=== PATIENT | male | born 1955 | race Caucasian/White ===

== ENCOUNTER → 2021-03-02 07:47 | Outpatient (CLI) | payer OTHER, SELFPAY ==
--- NOTE | ~2021-03-02 | US_ITS ---
EXAMINATION: US aorta DATE: 03/02/2021 08:14 INDICATION: Abdominal aortic aneurysm screening, history of hypertension and prior tobacco use TECHNIQUE: Grayscale, color Doppler, and pulsed Doppler images of the aorta and common iliac arteries were obtained. COMPARISON: None. FINDINGS: Maximum vascular dimensions are as follows: Proximal aorta: 2.1 cm Mid aorta: 2.1 cm Distal aorta: 2.1 cm Right common iliac artery: 1.3 cm Left common iliac artery: 1.2 cm There is no evidence of abdominal aortic aneurysm. IMPRESSION: 1. No sonographic evidence of abdominal aortic aneurysm. Reviewed, dictated and finalized at location A. UATE STUDENT INSTRUCTOR
== END ==
PROVIDERS: PCP Family Medicine; Visit Provider Family Medicine
DX: Z82.49 Family history of ischemic heart disease and other diseases of the circulatory system (principal); Z87.891 Personal history of nicotine dependence
CPT/HCPCS: 76775

== ENCOUNTER 2023-03-04 04:57 | Inpatient (IN) | payer MEDICARE, OTHER, SELFPAY ==
[2023-03-04] VITALS (26 sets, daily range): BP systolic 128–188; BP diastolic 72–106; PULSE 49–73; RESP 14–22; TEMP 36.1–37.2; O2SAT 96–100; BMI 26.4
--- NOTE | ~2023-03-04 | XR_ITS ---
Left Shoulder Technique: AP and scapular Y views were obtained. Clinical History: Pain Findings: No fracture or dislocation is seen. Osseous alignment is anatomic. The glenohumeral and acr omioclavicular joint spaces are preserved. Soft tissues are unremarkable. Impression: Unremarkable left shoulder radiographs. Reviewed, dictated and finalized at [facility]. STANT BOYS TRACK COACH Impression: Unremarkable left shoulder radiographs.
--- NOTE | 2023-03-04 05:03 | ECG_ITS ---
Measurements Intervals [place] Rate: 58 P: 26 [place]: 198 QRS: 18 QRSD: 102 T: 61 QT: 399 QTc: 394 Interpretive Statements SINUS BRADYCARDIA INCOMPLETE RIGHT BUNDLE BRANCH BLOCK [90+ ms QRS DURATION, TERMINAL R IN V1/V2, 40+ ms S IN I/aVL/V4/V5/V6] NONSPECIFIC ST ABNORMALITY ABNORMAL ECG NO PREVIOUS ECG AVAILABLE FOR COMPARISON Electronically Signed On 03-04-2023 16:58:52 FIRE INVESTIGATION MANAGER by Parmjit Young M.D.
--- NOTE | 2023-03-04 05:07 | PC.NURSE ---
Patient mentioned in triage area that he has a family hx of heart attacks
[2023-03-04 05:15] LABS: Basophils Absolute Auto 0.1 K/mm3 (0.0-0.1); Basophils Percent Auto 0.8 % (0.2-1.2); Eosinophils Absolute Auto 0.3 K/mm3 (0-0.3); Eosinophils Percent Auto 4.3 % (0-4.4); Hematocrit 46.8 % (42.0-52.0); Hemoglobin 15.5 g/dL (14.0-18.0); Immature Granulocyte Absolute 0.03 K/mm3 (0.00-0.031); Immature Granulocyte Percent A 0.4 % (0-0.5); Lymphocytes Absolute Auto 2.49 K/mm3 (0.9-3.2); Lymphocytes Percent Auto 33.6 % (18.3-44.2); Mean Corpuscular HGB Conc 33.1 g/dl (32-36); Mean Corpuscular Hemoglobin 29.2 pg (26-34); Mean Corpuscular Volume 88.3 fl (80-100); Mean Platelet Volume 10.1 fl (7.4-10.4); Monocytes Absolute Auto 0.7 K/mm3 (0.1-0.6); Neutrophils Absolute Auto 3.8 K/mm3 (1.3-6.7); Neutrophils Percent Auto 50.9 % (45.5-73.1); Platelet Count Result 247 k/mm3 (150-375); Red Cell Distribution Width 13.7 % (11.5-14.5); White Blood Count 7.4 K/mm3 (4.5-10.0)
[2023-03-04 05:25] LABS: Alanine Aminotransferase 30 U/L (6-50); Albumin Level 4.4 g/dL (3.5-5.1); Alkaline Phosphatase 75 U/L (38-126); Anion Gap 9 mmol/L (8-16); Aspartate Amino Transferase 27 U/L (17-59); Blood Urea Nitrogen 13 mg/dL (9-20); Calcium 9.6 mg/dL (8.4-10.2); Carbon Dioxide 31 mmol/L (22-30); Chloride 101 mmol/L (98-107); Estimated CRCL calculation 72 ml/min; Estimated Glomerular Filt Rate > 60; Glucose 114 mg/dL (65-110); Lipase 69 U/L (23-300); Potassium 3.6 mmol/L (3.4-5.0); Sodium 141 mmol/L (137-145)
[2023-03-04 05:27] LABS: INR 0.9; Partial Thromboplastin Time 27.7 SECONDS (22.3-36.8); Prothrombin Time 12.8 Seconds (11.1-14.7)
[2023-03-04 05:41] LABS: Troponin I 0.035 ng/mL (0.000-0.034)
--- NOTE | 2023-03-04 06:02 | ED.CHESTPAIN ---
HPI - Chest Pain General Chief Complaint: Chest Pain Stated Complaint: left shoulder pain Time Seen by Provider: 03/04/23 05:22 History of Present Illness [facility] narrative: patient presents the emergency department from home with left shoulder pain. Pain located deep in his shoulder . Patient is concerned because his brother and nephew have both from cardiac related issues. He denies chest pain shortness of breath. However the shoulder pain is not aggravated by movement. He states it actually feels somewhat better when he moves it. He did not injure it. Was caring his granddaughter yesterday but with the right arm. Patient has had stress tests in the past are unremarkable Related Data Allergies Allergy/AdvReac Type Severity Reaction Status Date / Time No Known Allergies Allergy Verified 02/28/23 09:00 Review of Systems Review of Systems: negative except for what is documented in the [facility] Past Medical History Medical History Hypertension Normal colonoscopy 2014 Surgical History Surgical History History of colectomy History of hernia surgery Family History Family History Mother Hypertension Family history of coronary artery disease Father Acute myocardial infarction Patient's father is in good health Family history of malignant neoplasm of brain Sibling Acute myocardial infarction Family history of coronary artery disease, Onset Age: 47 Family history of malignant neoplasm of breast in first degree relative, Onset Age: 56 Family history of malignant neoplasm of thyroid, Onset Age: 45 Social History Social History Smoking packs per day: 0.5 Smoking cigarettes per day: 10.0 Years smoked: 8 Smoking pack-years: 4.00 Smoking status: Former smoker Second hand tobacco smoke exposure: No Smoking end date: 03/24/83 Alcohol intake: current Drinks per week: 3 Substance use: never Substance use type: does not use Lack of Transportation: No Lack of Food: Never True Current Housing: I Have Housing Concerned About Future Housing: No Difficulty Paying Gas/Electric Bills: No Difficulty Paying for Meds: No Currently Unemployed: No Education: High School Diploma/GED Difficulty w/ Childcare or Family Care: No Living arrangements: with family Occupation/Education: occupation Gender identity (if verbalized by the patient): Male Spiritual care concerns: No Agree to blood products: Yes Exam Narrative: GENERAL: Well-appearing, well-nourished, and in no acute distress. HEAD: Normocephalic, atraumatic. EYES: PERRLA and EOMI. ENT: Nares clear, no rhinorrhea or epistaxis. Mucous membranes moist. NECK: Supple. CHEST: Clear to auscultation. No respiratory distress. HEART: Regular rate and rhythm. ABDOMEN: Soft, nontender, nondistended. EXTREMITIES: Normal range of motion. No edema. SKIN: Warm, dry, no rash. NEURO: No focal deficits. Alert and oriented x3. PSYCH: Normal mood and affect. Course Vital Signs Vital signs: Vital Signs Temperature 36.6 C 03/04/23 05:03 Pulse Rate 69 03/04/23 05:03 Respiratory Rate 22 H 03/04/23 05:03 Blood Pressure 174/106 H 03/04/23 05:03 Pulse Oximetry 99 03/04/23 05:03 Oxygen Delivery Room Air 03/04/23 05:03 Temperature 36.6 C 03/04/23 05:03 Pulse Rate 61 03/04/23 05:15 Respiratory Rate 17 03/04/23 05:15 Blood Pressure 188/103 H 03/04/23 05:15 Pulse Oximetry 99 03/04/23 05:15 Oxygen Delivery Room Air 03/04/23 05:03 MDM - Chest Pain Lab Data 03/04/23 05:10 03/04/23 05:10 Labs: Lab Results 03/04/23 Range/Units 05:10 WBC 7.4 (4.5-10.0) K/mm3 RBC 5.30 (4.6-6.20)
[2023-03-04] MEDS: ASPIRIN 81 MG CHEWABLE TABLET 324 MG PO (06:14)
[2023-03-04] MEDS: HYDROcodone/acetaminophen (*CRX) 10-325 MG TABLET 1 TAB PO (06:15)
[2023-03-04 06:50] LABS: CRP < 0.5 mg/dL (<1.0); Uric Acid 5.8 mg/dL (3.5-8.5)
[2023-03-04] MEDS: HEPARIN SODIUM 5,000 UNITS/ML VIAL 4000 UNITS IV PUSH (06:53)
[2023-03-04] MEDS: HEPARIN SOD/D5W 100 UNITS/ML 25,000 UNITS/250 ML BAG 10 UNITS IV CONT (06:53)
[2023-03-04 07:07] LABS: Erythrocyte Sedimentation Rate 1 mm/hr (0-20)
--- NOTE | 2023-03-04 08:51 | ECG_ITS ---
Measurements Intervals [place] Rate: 49 P: 13 UT: 198 QRS: -6 QRSD: 94 T: 50 QT: 403 QTc: 365 Interpretive Statements SINUS BRADYCARDIA OTHERWISE NORMAL ECG COMPARED TO ECG 03/04/2023 05:12:55 NO SIGNIFICANT CHANGES Electronically Signed On 03-04-2023 17:01:16 PORTUGUESE TUTOR by Parmjit Young M.D.
[2023-03-04 13:24] LABS: Partial Thromboplastin Time 64.3 SECONDS (22.3-36.8)
--- NOTE | 2023-03-04 13:35 | PM.CNCAR ---
Assessment and Plan Assessment and plan (1) Acute non-ST elevation myocardial infarction (NSTEMI): Code(s): I21.4 - Non-ST elevation (NSTEMI) myocardial infarction Status: Acute Assessment and Plan: Recommended cardiac catheterization. Discussed indication for procedure, procedure details, risks vs benefits, alternative management options, etc. Patient agreeable to proceed with cath. Will plan for cardiac cath today. Patient to remain NPO for procedure. Continue Heparin drip. Further recommendations pending results of cath. (2) Hypertension: Code(s): I10 - Essential (primary) hypertension Status: Acute Assessment and Plan: Initially hypertensive on arrival, but currently normotensive. Continue Losartan 25mg once daily. History of Present Illness History of Present Illness Consult date/time: 03/04/23 13:35 Requesting physician: Park Ambrose MD Consult reason: Other (NSTEMI) Reason For Visit: nstemi Narrative: We are consulted for NSTEMI. This is a 67 year old male with hypertension who presented with left shoulder pain that awoke him from his sleep at 3AM. Pain lasted until he was in the ER, for which he received Ryan, which patient states helped with the pain. No substernal chest pain. He has not had any recurrence of pain since then. No other associated symptoms. ER workup showed EKG with sinus rhythm, incomplete right bundle branch block. Initial troponin at 0.035, with increase to 1.120, with now at 4.040. In the ER, he was given ASA 324mg, started on Heparin drip. Patient reports that his father had an AZ in his 60s. His brother suddenly at age 47. His brother's son in his 50s. Patient's reports that his brother and nephew had aortic aneurysm; unclear exactly what the cause of was. Patient is a former smoker, quit at age 28. Review of Systems Review of Systems: All systems reviewed & are unremarkable except as noted in HPI and below (HPI) [facility] Past Medical History Medical History Hypertension Normal colonoscopy 2014 Surgical History Surgical History History of colectomy History of hernia surgery Family History Family History Mother Hypertension Family history of coronary artery disease Father Acute myocardial infarction Patient's father is in good health Family history of malignant neoplasm of brain Sibling Acute myocardial infarction Family history of coronary artery disease, Onset Age: 47 Family history of malignant neoplasm of breast in first degree relative, Onset Age: 56 Family history of malignant neoplasm of thyroid, Onset Age: 45 Social History Social History Smoking packs per day: 0.5 Smoking cigarettes per day: 10.0 Years smoked: 8 Smoking pack-years: 4.00 Smoking status: Former smoker Second hand tobacco smoke exposure: No Smoking end date: 03/24/83 Alcohol intake: current Drinks per week: 3 Substance use: never Substance use type: does not use Lack of Transportation: No Lack of Food: Never True Current Housing: I Have Housing Concerned About Future Housing: No Difficulty Paying Gas/Electric Bills: No Difficulty Paying for Meds: No Currently Unemployed: No Education: High School Diploma/GED Difficulty w/ Childcare or Family Care: No Living arrangements: with family Occupation/Education: occupation Gender identity (if verbalized by the patient): Male Spiritual care concerns: No Agree to blood products: Yes Meds Home Medications and Allergies Home Medications Medication Instructions Recorded Confirmed Type losartan 25 mg tablet 25 mg PO DAILY #30 tabs 02/28/23 02/28/23 Rx Allergies Allergy/AdvReac Type Severity Reaction Status Date / Time Jacqueline K
--- NOTE | 2023-03-04 13:42 | PM.IMHP ---
H&P: HPI History of Present Illness Date/Time: 03/04/23 13:42 Chief Complaint: left shoulder pain Narrative: 67M w/ a history of hypertension presents with L shoulder dull pain which awoke him from sleep this AM. He was carrying grandchildren in his right arm the day prior. No trama to left arm or shoulder. He denies any associate symptoms. He had a heart cath at the age of 12 from a murmur, which is now gone and he was discharged from cardiology clinic at the age of 17. He has had some stress tests in the recent years but they were normal. Multiple family members with cardiac disease and aortic issues beginning the age of 40's. He is a non smoker. Pt received aspirin and vicodin but doesn't know which one helped his shoulder pain resolved. Currently asymptomatic. is in the room and assists with history. Review of Systems Review of Systems: All systems reviewed & are unremarkable except as noted in HPI and below (HPI) [facility] Past Medical History Medical History Hypertension Normal colonoscopy 2014 Surgical History Surgical History History of colectomy History of hernia surgery Family History Family History Mother Hypertension Family history of coronary artery disease Father Acute myocardial infarction Patient's father is in good health Family history of malignant neoplasm of brain Sibling Acute myocardial infarction Family history of coronary artery disease, Onset Age: 47 Family history of malignant neoplasm of breast in first degree relative, Onset Age: 56 Family history of malignant neoplasm of thyroid, Onset Age: 45 Social History Social History Smoking packs per day: 0.5 Smoking cigarettes per day: 10.0 Years smoked: 8 Smoking pack-years: 4.00 Smoking status: Former smoker Second hand tobacco smoke exposure: No Smoking end date: 03/24/83 Alcohol intake: current Drinks per week: 3 Substance use: never Substance use type: does not use Lack of Transportation: No Lack of Food: Never True Current Housing: I Have Housing Concerned About Future Housing: No Difficulty Paying Gas/Electric Bills: No Difficulty Paying for Meds: No Currently Unemployed: No Education: High School Diploma/GED Difficulty w/ Childcare or Family Care: No Living arrangements: with family Occupation/Education: occupation Gender identity (if verbalized by the patient): Male Spiritual care concerns: No Agree to blood products: Yes Meds Home Medications and Allergies Home Medications Medication Instructions Recorded Confirmed Type losartan 25 mg tablet 25 mg PO DAILY #30 tabs 02/28/23 02/28/23 Rx Allergies Allergy/AdvReac Type Severity Reaction Status Date / Time No Known Allergies Allergy Verified 03/04/23 07:14 Vital Signs Vital Signs - 24 hr 03/04/23 05:03 03/04/23 05:15 03/04/23 07:02 Temperature 97.9 F Pulse Rate 69 61 59 L Respiratory Rate 22 H 17 15 Blood Pressure 174/106 H 188/103 H 164/94 H Pulse Oximetry 99 99 98 Oxygen Delivery Room Air 03/04/23 07:59 03/04/23 08:32 Temperature Pulse Rate 57 L 49 L Respiratory Rate 20 16 Blood Pressure 140/93 H 135/83 Pulse Oximetry 98 96 Oxygen Delivery Exam Const: General: comfortable and no acute distress Eyes: Pupils: Equal, round and reactive pupils present Neck: Neck: supple Resp: Effort & Inspection: normal respiratory effort Auscultation: clear to auscultation bilaterally, no crackles, no rales and no rhonchi Cardio: Rate: regular rate Rhythm: regular rhythm Heart sounds: no gallops, no murmurs and no rubs GI: GI Palp: Yes Soft to palpation and No Tenderness to palpation present (GI) Neuro: Motor exam (neuro): 5/5 motor strength present throughout Extrem: Gene
--- NOTE | 2023-03-04 13:44 | WPDMODSED ---
Moderate Sedation Note-Pt Data Patient Data Diagnosis: NSTEMI Present Complaint: NSTEMI Procedure to be performed/Plan: Coronary angiography, left heart cath, +/- PCI Allergies Allergy/AdvReac Type Severity Reaction Status Date / Time No Known Allergies Allergy Verified 03/04/23 07:14 Home Medications Medication Instructions Recorded Confirmed Type losartan 25 mg tablet 25 mg PO DAILY #30 tabs 02/28/23 02/28/23 Rx Current Medications: Active Medications Heparin Sodium (Porcine) (Heparin Sodium 5,000 Units/Ml Vial) 4,000 units IV PUSH PRN PRN PRN Reason: aPTT less than 55 seconds Heparin Sodium (Porcine) (Heparin Sodium 5,000 Units/Ml Vial) 3,500 units IV PUSH PRN PRN PRN Reason: aPTT 55 - 70 seconds Heparin Sodium/Dextrose (Heparin Sodium/D5w 100 Units/Ml) 25,000 units in 250 mls @ 10 mls/hr IV CONT .Q24H HUMZA; Protocol Last Admin: 03/04/23 06:53 Dose: 1,000 units/hr, 10 mls/hr Sedation/Anesthesia: No previous sedation/anesthesia problems (including family history). [facility] [place] Past Medical History Medical History Hypertension Normal colonoscopy 2014 Surgical History Surgical History History of colectomy History of hernia surgery Family History Family History Mother Hypertension Family history of coronary artery disease Father Acute myocardial infarction Patient's father is in good health Family history of malignant neoplasm of brain Sibling Acute myocardial infarction Family history of coronary artery disease, Onset Age: 47 Family history of malignant neoplasm of breast in first degree relative, Onset Age: 56 Family history of malignant neoplasm of thyroid, Onset Age: 45 Social History Social History Smoking packs per day: 0.5 Smoking cigarettes per day: 10.0 Years smoked: 8 Smoking pack-years: 4.00 Smoking status: Former smoker Second hand tobacco smoke exposure: No Smoking end date: 03/24/83 Alcohol intake: current Drinks per week: 3 Substance use: never Substance use type: does not use Lack of Transportation: No Lack of Food: Never True Current Housing: I Have Housing Concerned About Future Housing: No Difficulty Paying Gas/Electric Bills: No Difficulty Paying for Meds: No Currently Unemployed: No Education: High School Diploma/GED Difficulty w/ Childcare or Family Care: No Living arrangements: with family Occupation/Education: occupation Gender identity (if verbalized by the patient): Male Spiritual care concerns: No Agree to blood products: Yes Mod Sed Physical Exam Physical Exam Pre Procedural Exam: Normal: Appearance, Lungs, Heart Rate, Heart Rhythm, Neuro Exam, Extremities and Skin Hours since solid foods: 15 Hours since liquid intake: 8 Mallampati Classification: class II Internal Medicine - PN: Obj Da Vital Signs Vital Signs: Vital Signs - 24 hr 03/04/23 05:03 03/04/23 05:15 03/04/23 07:02 Temperature 36.6 C Pulse Rate 69 61 59 L Respiratory Rate 22 H 17 15 Blood Pressure 174/106 H 188/103 H 164/94 H Pulse Oximetry 99 99 98 Oxygen Delivery Room Air 03/04/23 07:59 03/04/23 08:32 Temperature Pulse Rate 57 L 49 L Respiratory Rate 20 16 Blood Pressure 140/93 H 135/83 Pulse Oximetry 98 96 Oxygen Delivery Meds/Results Medications: Active Medications Generic Name Dose Route Start Last Admin Trade Name Freq PRN Reason Stop Dose Admin Heparin Sodium (Porcine) 4,000 units 03/04/23 06:22 Heparin Sodium 5,000 Units/Ml Vial IV PUSH PRN PRN aPTT less than 55 seconds Heparin Sodium (Porcine) 3,500 units 03/04/23 06:22 Heparin Sodium 5,000 Units/Ml Vial IV PUSH PRN PRN aPTT 55 - 70 seconds Heparin Sodium/Dextrose 25,000 units in 250 mls @ 10
--- NOTE | 2023-03-04 15:25 | WPDCARDPROC ---
Cardiac Cath Procedure Note Date of procedure:: 03/04/23 Performing physician:: CATHETERIZATION LABORATORY REPORT Procedure Date: 03/04/2023 Dispensary Clerk: Sanya Simmons M.D., [facility]? Referring Physician: Sanya Simmons M.D. ? Anesthesia: Versed and Fentanyl were ordered and given in my presence at 14:21, procedure ended at 15:08. Supervision of nurse monitored moderate sedation with Versed and Fentanyl was provided for 47 minutes. Total of Versed 1mg and Fentanyl 25mcg were administered by the Assistant Corporate Secretary RN Carmen Saucedo. Pre-op Diagnosis: NSTEMI Post-op Diagnosis: 1. Significant 99% stenosis in the mid portion of OM-2 s/p successful IVUS-guided PCI with CARLOS x 1 2. Borderline moderate stenosis of the mid LAD 3. Left-dominant coronary artery system Procedure(s): 1. Moderate sedation 2. Ultrasound-guided access of the right radial artery 3. Coronary angiography 4. IVUS of OM 5. PCI of the OM-2 with CARLOS x 1 Access Site: Right radial artery Brief History and Clinical Indications: Patient is a 67 year old male with hypertension who is referred for cardiac catheterization for NSTEMI. All risks, benefits and alternatives to left heart catheterization with or without percutaneous coronary intervention was discussed at length with the patient. Risk of complications including but not limited to bleeding, infection, arrhythmia, stroke, worsening kidney function, blood loss, groin hematoma, limb loss, emergency coronary artery bypass grafting, and even were discussed with the patient and all questions were answered. The patient understood and wished to proceed. Time out called, patient name, date of , medical record number, allergies, procedure performed, identify Dispensary Clerk, patient and staff member concurred with accurate data, procedure carried on. Findings: LEFT HEART CATHETERIZATION FINDINGS: 1. Left main: The left main coronary artery is widely patent without any significant obstructive disease. 2. Left anterior descending: The proximal to mid LAD has heavy diffuse calcifications. The ostium of the LAD has a mild stenosis of about 40%. The LAD has diffuse mild disease with a moderate borderline 60-70% stenosis in the mid portion at the level of the bifurcation of a diagonal branch. 3. Left circumflex: The left circumflex is the dominant vessel. The left circumflex has mild diffuse disease. OM-1 has luminal irregularities. OM-2 has a 99% stenosis in the mid portion. There is a small caliber left posterolateral branch with moderate ostial stenosis. 4. Right coronary artery: The RCA is a medium caliber vessel. The RCA is the nondominant vessel. The RCA has diffuse mild disease without any significant obstructive angiographic disease. Description of Procedure and PCI: Informed consent signed and placed in the chart. Patient transferred to track laborer room. Prepped and draped in usual sterile fashion. 2% lidocaine injected subcutaneously in right wrist area. 22-gauge venipuncture catheter used to access the right radial artery under ultrasound guidance. 6-FR slender sheath placed in right radial artery. Nitroglycerine and Verapamil were given intraarterial through the sheath. Versacore wire advanced under fluoroscopy 5F Tig 4 diagnostic catheter engaged Left Main Coronary Artery. 5F Tig 4 diagnostic catheter engaged Right Coronary Artery Multiple orthogonal angiogram obtained and reviewed Angiomax was used for anticoagulation. 6F CLS 3.0 guide catheter was used to intubate the left main 0.014 [place] coronary wire was passed in to the distal OM-2 vessel. The lesion was pre-dilated with a 2.5mm x 15mm balloon inflated to high JOHN IVUS catheter advanced and reference measurements obtained. A 3.0mm x 22mm Orsiro CARLOS was successfully deployed into OM-2. Follow-up angiograms showed an excellent result Coronary wire and guide-catheter were removed No angiographic complications identified. Hemostasis was achieved by appl
--- NOTE | 2023-03-04 15:41 | ECG_ITS ---
Measurements Intervals [place] Rate: 55 P: 9 [place]: 201 QRS: -15 QRSD: 89 T: 41 QT: 395 QTc: 380 Interpretive Statements SINUS BRADYCARDIA OTHERWISE NORMAL ECG COMPARED TO ECG 03/04/2023 08:55:53 NO SIGNIFICANT CHANGES Electronically Signed On 03-05-2023 10:26:26 GRAIN PROCESSOR by Parmjit Young M.D.
--- NOTE | 2023-03-04 15:42 | ECG_ITS ---
Measurements Intervals [place] Rate: 57 P: 23 UT: 205 QRS: 2 QRSD: 98 T: 50 QT: 405 QTc: 396 Interpretive Statements SINUS BRADYCARDIA OTHERWISE NORMAL ECG COMPARED TO ECG 03/04/2023 11:05:58 NO SIGNIFICANT CHANGES Electronically Signed On 03-05-2023 10:33:44 DIRECTOR OF PARTNER MARKETING by Parmjit Young M.D.
[2023-03-04] MEDS: SODIUM CHLORIDE 0.9% IV 1,000 ML 125 ML IV CONT (19:10)
[2023-03-04] MEDS: ATORVASTATIN 40 MG TABLET 80 MG PO (20:27)
--- NOTE | 2023-03-04 21:55 | ADMGEN ---
This patient, Roland Navarrete, was admitted to IMU Room 202-. Patient/family oriented to hospital policies and general routines including ID bracelet, bed and alarms, visiting hours, pain management, procedures, bathroom and other care routines, personal items, smoking policy, room service/diet, and visiting hours. Information on how to activate the Rapid Response Team has been discussed. Patient/Family are encouraged to report perceived risks to care and to ask questions if they do not understand what they are told or what they should do.
[2023-03-05] VITALS (10 sets, daily range): BP systolic 124–137; BP diastolic 75–89; PULSE 55–64; RESP 12–20; TEMP 36.6–36.8; O2SAT 95–99
--- NOTE | 2023-03-05 | ECHO_ITS ---
Patient Info Name: Roland Navarrete Age: 67 years : 1955 Gender: Male Ht: 73 in Wt: 200 lbs BSA: 2.17 m2 HR: 58 bpm BP: 124 / 75 mmHg Heart Rhythm: Sinus Rhythm Technical Quality: Good Exam Date: 03/05/2023 10:20 AM Exam Location: Echo Lab Patient Status: Inpatient Admit Date: 03/05/2023 Staff Ordering Physician: Sanya Simmons MD (li/noble) [employer] Power[employer] Supervisor: Jena Marquez RDCS Attending Provider: Joe Barrett MD Referring Physician: Troy GARCIA; Exam Type: CA echo doppler color flow Study Info Indications - NSTEMI Complete two-dimensional, color flow and Doppler transthoracic echocardiogram is performed. Summary 1. Complete two-dimensional, color flow and Doppler transthoracic echocardiogram is performed. 2. Left ventricular chamber dimension is normal. 3. Left ventricular systolic function is normal, estimated at 55-60%. 4. There is mildly increased left ventricular wall thickness. 5. The left ventricular diastolic function is grade I diastolic dysfunction. 6. Right ventricular chamber dimension is mildly enlarged. 7. Right ventricular systolic function is normal. 8. Right atrial chamber dimension is mildly enlarged. 9. There is trace mitral valve regurgitation. 10. There is trace tricuspid valve regurgitation. Left Ventricle Left ventricular chamber dimension is normal. Left ventricular systolic function is normal, estimated at 55-60%. There is mildly increased left ventricular wall thickness. The left ventricular diastolic function is grade I diastolic dysfunction. Right Ventricle Right ventricular chamber dimension is mildly enlarged. Right ventricular systolic function is normal. Left Atria Left atrial chamber dimension is normal. Right Atria Right atrial chamber dimension is mildly enlarged. Atrial Septum Intact interatrial septum visualized by color flow imaging. Aortic Valve The aortic valve is trileaflet. There is mild aortic valve sclerosis. There is no aortic valve stenosis. There is no aortic valve regurgitation. Pulmonic Valve The pulmonic valve is not well visualized. Mitral Valve There is trace mitral valve regurgitation. Tricuspid Valve There is trace tricuspid valve regurgitation. Pericardium/Pleural There is no pericardial effusion. Inferior Vena Cava Normal inferior vena cava with >50% collapse upon inspiration consistent with normal right atrial pressure, 3 mmHg. Aorta The aortic root size at the sinus of Valsalva is normal. Left Ventricular Outflow Tract Name Value Normal LVOT 2D LVOT Diameter 2.2 cm LVOT Doppler LVOT Peak Gradient 2 mmHg LVOT Mean Gradient 1 mmHg LVOT VTI 16 cm LVOT VTI/AV VTI Ratio 0.6 LVOT Stroke Volume 61 ml LVOT CO 3.1 l/min LVOT CI 1.4 l/min/m2 Pulmonic Valve Name Value Normal RVOT Doppler
[2023-03-05 05:22] LABS: Hematocrit 42.9 % (42.0-52.0); Hemoglobin 14.3 g/dL (14.0-18.0); Mean Corpuscular HGB Conc 33.3 g/dl (32-36); Mean Corpuscular Hemoglobin 29.3 pg (26-34); Mean Corpuscular Volume 87.9 fl (80-100); Mean Platelet Volume 10.2 fl (7.4-10.4); Platelet Count Result 232 k/mm3 (150-375); Red Blood Count 4.88 M/mm3 (4.6-6.20); Red Cell Distribution Width 13.7 % (11.5-14.5); White Blood Count 7.8 K/mm3 (4.5-10.0)
[2023-03-05 05:41] LABS: Anion Gap 5 mmol/L (8-16); Blood Urea Nitrogen 10 mg/dL (9-20); Calcium 8.7 mg/dL (8.4-10.2); Carbon Dioxide 29 mmol/L (22-30); Chloride 104 mmol/L (98-107); Estimated CRCL calculation 88 ml/min; Estimated Glomerular Filt Rate > 60; Glucose 95 mg/dL (65-110); Magnesium 2.1 mg/dL (1.6-2.3); Potassium 3.8 mmol/L (3.4-5.0); Sodium 138 mmol/L (137-145)
[2023-03-05] MEDS: METOPROLOL SUCCINATE EXT REL 25 MG TABCR PO (08:52)
[2023-03-05] MEDS: LOSARTAN POTASSIUM 25 MG TABLET PO (08:52)
[2023-03-05] MEDS: ASPIRIN 81 MG ENTERIC TABLET PO (08:52)
[2023-03-05] MEDS: CLOPIDOGREL BISULFATE 75 MG TABLET PO (08:53)
[2023-03-05 10:12] LABS: Magnesium 2.2 mg/dL (1.6-2.3); Phosphorus 2.8 mg/dL (2.5-4.5)
--- NOTE | 2023-03-05 11:55 | PCCCNOTE ---
On 03/05/23, the student, [Concha Saucedo], provided care and completed [facility] documentation on this patient. I have reviewed the student's documentation and agree with the findings.
--- NOTE | 2023-03-05 12:42 | PM.PNCARD ---
Progress Note: A&P Assessment and Plan (1) Acute non-ST elevation myocardial infarction (NSTEMI): Code(s): I21.4 - Non-ST elevation (NSTEMI) myocardial infarction Status: Acute Assessment and Plan: Cardiac catheterization 03/04 showed: 1. Significant 99% stenosis in the mid portion of OM-2 s/p successful IVUS-guided PCI with CARLOS x 1 2. Borderline moderate stenosis of the mid LAD 3. Left-dominant coronary artery system Echocardiogram with normal LVEF, no significant valvular disease. Patient to be on: ASA 81mg QD indefinitely Plavix 75mg QD for at least 1 year Toprol started, continue High intensity statin Referral to cardiac rehab placed Will arrange outpatient follow up with me. Okay to discharge home from a Cardiology standpoint. (2) Hypertension: Code(s): I10 - Essential (primary) hypertension Status: Acute Assessment and Plan: Initially hypertensive on arrival, but currently normotensive. Continue Losartan 25mg once daily. Plan Recommendations/Plan discussed with Hospitalist. Subjective Date/time seen: 03/05/23 12:42 Interval history: Reason for visit: NSTEMI HPI: We are consulted for NSTEMI. This is a 67 year old male with hypertension who presented with left shoulder pain that awoke him from his sleep at 3AM. Pain lasted until he was in the ER, for which he received [place], which patient states helped with the pain. No substernal chest pain. He has not had any recurrence of pain since then. No other associated symptoms. ER workup showed EKG with sinus rhythm, incomplete right bundle branch block. Initial troponin at 0.035, with increase to 1.120, with now at 4.040. In the ER, he was given ASA 324mg, started on Heparin drip. Patient reports that his father had an AL in his 60s. His brother suddenly at age 47. His brother's son in his 50s. Patient's reports that his brother and nephew had aortic aneurysm; unclear exactly what the cause of was. Patient is a former smoker, quit at age 28. Date of service 03/05: Doing well today. No complaints. Tele stable. Review of Systems Review of Systems: No chest pain, shortness of breath, shoudler pain Exam Const: General: comfortable and no acute distress HENMT: Mouth: Yes moist mucous membranes Eyes: General: appearance normal, both eyes and all related structures Sclera: sclerae normal Neck: Neck: supple Resp: Effort & Inspection: normal respiratory effort Cardio: Rate: regular rate Rhythm: regular rhythm Skin: General skin exam: normal color Neuro: Speech: normal speech Psych: Mental Status: mental status grossly normal Affect: normal affect Objective Data Vital Signs Vital Signs: Vital Signs - 24 hr 03/04/23 13:30 03/04/23 15:30 03/04/23 15:45 Temperature Pulse Rate 66 58 L 60 Respiratory Rate 18 16 14 Blood Pressure 149/82 H 145/106 H 148/85 H Pulse Oximetry 99 100 100 Oxygen Delivery Room Air Room Air 03/04/23 16:00 03/04/23 16:15 03/04/23 16:30 Temperature Pulse Rate 57 L 64 58 L Respiratory Rate 16 14 16 Blood Pressure 144/83 H 146/85 H 146/89 H Pulse Oximetry 99 100 100 Oxygen Delivery Room Air Room Air Room Air 03/04/23 16:45 03/04/23 17:00 03/04/23 17:15 Temperature Pulse Rate 60 62 63 Respiratory Rate 14 16 16 Blood Pressure 157/85 H 142/84 H 140/83 Pulse Oximetry 100 100 100 Oxygen Delivery Room Air Room Air Room Air 03/04/23 17:30 03/04/23 18:30 03/04/23 17:45 Temperature Pulse Rate 73 67 68 Respiratory Rate 18 20 16 Blood Pressure 137/73 131/77 128/72 Pulse Oximetry 100 99 99 Oxygen Delivery Room Air Room Air Room Air 03/04/23 18:00 03/04/23 18:15 03/04/23 18:45 Temperature Pulse Rate 67 67 68 Respiratory Rate 18 18 16 Blood Pressure 132/81 133/76 141/80 H Pulse Oximetry 98 99 99 Oxygen Delivery Room Air Room Air Room Air 03/04/23 19:00 03/04/23 19:20 03/04/23 19:20 Temperature 37.2 C 37.2 C Pulse
--- NOTE | 2023-03-05 14:31 | PM.DS ---
DS: Admitting Diagnosis Discharge Date 03/05/2023: Admitting Diagnosis Non ST elevated [place] DS: Discharge Diagnosis Discharge Diagnosis (1) Acute non-ST elevation myocardial infarction (NSTEMI): Code(s): I21.4 - Non-ST elevation (NSTEMI) myocardial infarction Status: Acute (2) FH: CAD (coronary artery disease): Code(s): Z82.49 - Family history of ischemic heart disease and other diseases of the circulatory system Status: Acute (3) Tinnitus: Code(s): H93.19 - Tinnitus, unspecified ear Status: Acute (4) Unilateral hearing loss: Code(s): H91.90 - Unspecified hearing loss, unspecified ear Status: Acute (5) Prediabetes: Code(s): R73.03 - Prediabetes Status: Acute (6) Colon cancer screening: Code(s): Z12.11 - Encounter for screening for malignant neoplasm of colon Status: Acute (7) Acute sinusitis: Code(s): J01.90 - Acute sinusitis, unspecified Status: Acute (8) Fatigue: Code(s): R53.83 - Other fatigue Status: Acute (9) Welcome to Medicare preventive visit: Code(s): Z00.00 - Encounter for general adult medical examination without abnormal findings Status: Acute (10) Former smoker: Code(s): Z87.891 - Personal history of nicotine dependence Status: Acute (11) Hypertension: Code(s): I10 - Essential (primary) hypertension Status: Acute (12) FH: abdominal aortic aneurysm: Code(s): Z82.49 - Family history of ischemic heart disease and other diseases of the circulatory system Status: Acute DS: Summary Hospital Course Reason for hospitalization: Patient admitted with left shoulder pain. Workup was done which showed non ST elevated [place]. Hospital Course: 03/04/2023: H&P: HPI History of Present Illness Date/Time: 03/04/23? 13:42 Chief Complaint: left shoulder pain Narrative: 67M w/ a history of hypertension presents with L shoulder dull pain which awoke him from sleep this AM. He was carrying grandchildren in his right arm the day prior. No trama to left arm or shoulder. He denies any associate symptoms. He had a heart cath at the age of 12 from a murmur, which is now gone and he was discharged from cardiology clinic at the age of 17. He has had some stress tests in the recent years but they were normal. Multiple family members with cardiac disease and aortic issues beginning the age of 40's. He is a non smoker. Pt received aspirin and vicodin but doesn't know which one helped his shoulder pain resolved. Currently asymptomatic. is in the room and assists with history. Plan 67M w/ a history of hypertension presents with L shoulder dull pain which awoke him from sleep this AM. He was carrying grandchildren in his right arm the day prior. No trama to left arm or shoulder. He denies any associate symptoms. He had a heart cath at the age of 12 from a murmur, which is now gone and he was discharged from cardiology clinic at the age of 17. He has had some stress tests in the recent years but they were normal. Multiple family members with cardiac disease and aortic issues beginning the age of 40's. He is a non smoker. Pt received aspirin and Vicodin but doesn't know which one helped his shoulder pain resolve. Currently asymptomatic. is in the room and assists with history. Admitted on 03/04 # NSTEMI - pt to go for cath today. positive family history. troponin elevated to 4 on 2nd repeat. EKG without acute ischemia. cont heparin gtt. appreciate cardiology recs post cath. - received ASA 325mg - lipid panel from 09/13 abnormal, apparently isn't on statin - hba1c from 09/13 5.4, repeat as outpatient # hx of HTN - follow FEN: npo, saline lock IV GI prophylaxis: none indicated DVT prophylaxis: heparin GTT Lines: pIV Code Status: Full Code Dispo: stable 03/05/2023: Patient seen and evaluated at bedside today. He underwent cardiac catheterization yesterday with 1 stent placement. He
--- NOTE | 2023-03-05 15:28 | PCCPR ---
Spoke with Pt and his at bedside just prior to dc. Overview of the program given and was very receptive, Handout given explained our coordinator would be giving him a call shortly once we have his official order and medical records.
== END 2023-03-05 15:15 | disposition home or self-care (01) | DRG 322 ==
LOC: ANHED 06:38 → ANHIMU 07:09
PROVIDERS: General Practice; Internal Medicine; Admitting Provider Internal Medicine; Emergency Provider Emergency Medicine; PCP Family Medicine; Visit Provider Family Medicine
PROC: 027034Z Dilation of Coronary Artery, One Artery with Drug-eluting Intraluminal Device, Percutaneous Approach (ICD-10-PCS; CPT 93454; principal; 2023-03-04 13:30)
PROC: 027034Z Dilation of Coronary Artery, One Artery with Drug-eluting Intraluminal Device, Percutaneous Approach (ICD-10-PCS; CPT 92928; 2023-03-04 13:30)
PROC: 027034Z Dilation of Coronary Artery, One Artery with Drug-eluting Intraluminal Device, Percutaneous Approach (ICD-10-PCS; 2023-03-04 13:30)
DX: I21.4 Non-ST elevation (NSTEMI) myocardial infarction (principal); I10 Essential (primary) hypertension; Z82.49 Family history of ischemic heart disease and other diseases of the circulatory system; Z87.891 Personal history of nicotine dependence; H93.19 Tinnitus, unspecified ear; H91.90 Unspecified hearing loss, unspecified ear; R73.03 Prediabetes; J01.90 Acute sinusitis, unspecified
CPT/HCPCS: 36415; 73030; 80048; 80053; 83690; 83735; 84100; 84484; 84550; 85025; 85027; 85610; 85652; 85730; 86140; 92978; 93005; 93306; 93454; 96374; 99285; A9270; C1725; C1753; C1769; C1874; C1887; C1894; C9600; G0378; J0583; J1644; J2250; J2305; J3010; J7030; J7040

== ENCOUNTER 2023-07-17 11:00 | Outpatient (RCR) | payer MEDICARE, OTHER, SELFPAY | END 2023-07-17 14:43 | disposition home or self-care (01) | LOC: ANHCPREHAB 11:00 | PROVIDERS: PCP Family Medicine; Visit Provider Internal Medicine | DX: I25.2 Old myocardial infarction (principal) | CPT/HCPCS: 93798 ==

== ENCOUNTER 2023-09-30 19:28 | Emergency (ER) | payer MEDICARE, OTHER, SELFPAY ==
--- NOTE | ~2023-09-30 | XR_ITS ---
EXAMINATION: XR foot LT min 3V DATE: 09/30/2023 19:46 INDICATION: Left foot injury and swelling. TECHNIQUE: 4 views of left foot were obtained. COMPARISON: None. FINDINGS: Alignment is normal. There is a fracture deformity of head of fifth proximal phalanx, likel y chronic. 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 There are enthesophyte s at the posterior and plantar aspects of calcaneal tuberosity. There is soft tissue swelling of the dorsum of the foot. IMPRESSION: 1. No acute fracture. Reviewed, dictated and finalized at location E. IMPRESSION: 1. No acute fracture.
--- NOTE | 2023-09-30 19:34 | ED.LOWEXIN ---
HPI - Extremity Injury (Lower) General Chief Complaint: Extremity Injury, Lower Stated Complaint: left foot injury Time Seen by Provider: 09/30/23 19:44 Source: patient and RN notes reviewed Mode of arrival: ambulatory Limitations: no limitations History of Present Illness HPI Narrative: 67-year-old male presents with concern for injury to the left foot. Reports this afternoon he dropped a piece of plywood on the foot. He reports swelling, bruising, pain to the dorsal foot. He denies decreased strength, sensation, range of motion MD complaint: foot injury Related Data Home Medications Medication Instructions Recorded Confirmed losartan 25 mg tablet 25 mg PO DAILY 09/22/23 09/30/23 Allergies Allergy/AdvReac Type Severity Reaction Status Date / Time No Known Allergies Allergy Verified 09/30/23 19:44 Review of Systems Review of Systems: CONSTITUTIONAL: Denies malaise, chills, sweats, or fever. SKIN: Denies rash or itching, open skin, laceration, abrasion, redness, warmth MUSCULOSKELETAL: Reports left foot pain bruising, swelling NEUROLOGIC: Denies numbness, weakness All systems reviewed & are unremarkable except as noted in HPI and below PMFSH Past Medical History Medical History (Updated 09/30/23 @ 19:53 by Lauren Gómez NP) Coronary artery disease Hypertension Normal colonoscopy 2014 Surgical History Surgical History History of colectomy History of hernia surgery Family History Family History Mother Family history of coronary artery disease Hypertension Father Acute myocardial infarction Family history of malignant neoplasm of brain gleo blastoma Family history of coronary artery disease Hypertension Sibling Acute myocardial infarction Family history of malignant neoplasm of breast in first degree relative, Onset Age: 56 Family history of malignant neoplasm of thyroid, Onset Age: 45 Family history of coronary artery disease, Onset Age: 47 Other Patient's father is in good health Social History Social History Smoking packs per day: 0.5 Smoking cigarettes per day: 10.0 Years smoked: 10 Smoking pack-years: 5.00 Smoking status: Former smoker Tobacco type: cigarettes 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) Smoking end date: 03/24/83 Alcohol intake: never Drinks per week: 3 Substance use: never Substance use type: does not use Do You Feel Safe in your Home?: Yes Lack of Transportation: No Lack of Food: Never True Current Housing: I Have Housing Concerned About Future Housing: No Difficulty Paying Gas/Electric Bills: No Difficulty Paying for Meds: No Currently Unemployed: No Education: Bachelor's Degree Difficulty w/ Childcare or Family Care: No Living arrangements: with family Occupation/Education: occupation Gender identity (if verbalized by the patient): Male Spiritual care concerns: No Agree to blood products: Yes Comments At time of signature, agree with nursing past medical, surgical, social and family history. There is no relevant family history pertinent to the presenting complaint Exam Narrative: GENERAL: Well-appearing, well-nourished, and in no acute distress. HEAD: Normocephalic, atraumatic. EYES: PERRLA, conjunctivae clear NECK: Supple. CHEST: Speaks in full sentences. No respiratory distress. HEART: Regular rate and rhythm. Normal and equal peripheral pulses. EXTREMITIES: Left foot, digits have grossly normal normal strength and sensation, normal range of motion. Moderate dorsal edema with mild ecchymosis. Normal sensation with sensitivity to light touch and pain. No point tenderness. No open wounds, no skin tenting, no devitalized tissue or atrophy, no trophic changes, no obvious deformity, alignment normal, nearby joints
[2023-09-30 19:40] VITALS: BP 153/79; PULSE 60; RESP 16; TEMP 36.7; O2SAT 99
== END 2023-09-30 19:59 | disposition home or self-care (01) ==
PROVIDERS: Emergency Provider Nurse Practitioner; PCP Family Medicine
DX: S90.32XA Contusion of left foot, initial encounter (principal); W20.8XXA Other cause of strike by thrown, projected or falling object, initial encounter; Z87.891 Personal history of nicotine dependence; I25.10 Atherosclerotic heart disease of native coronary artery without angina pectoris; I10 Essential (primary) hypertension
CPT/HCPCS: 73630; 99213; G0463